=== PATIENT | female | born 1940 | race Caucasian/White ===

== ENCOUNTER 2017-09-13 06:07 | Day surgery (SDC) | payer MEDICARE ==
[2017-09-12 13:36] VITALS: BMI 36.6
[2017-09-13] MEDS ORDERED: CEFAZOLIN/Water 2 GM/20 ML SYRINGE ONE (06:46)
[2017-09-13] MEDS ORDERED: Diprivan 20 ML ONE (06:57)
[2017-09-13 06:58] LABS: #Basophils 0.1 thou/uL (0.0-0.2); #Eosinphils 0.1 thou/uL (0.0-0.7); #Lymphocytes 2.3 thou/uL (1.20-3.40); #Monocytes 0.5 thou/uL (0.11-0.59); #Neutrophils 4.8 thou/uL (1.40-6.50); %Basophils 0.7 % (0.0-1.0); %Eosinophils 0.6 % (0.0-10.0); %Lymphocytes 29.8 % (21.0-51.0); %Monocytes 6.9 % (0.0-10.0); Hematocrit 45.6 % (36.0-47.0); Mean Platelet Volume 7.5 fL (7.4-10.4); Red Blood Cell (RBC) Count 4.61 mill/uL (4.20-5.40); White Blood Cell (WBC) Count 7.7 thou/uL (4.8-10.8)
[2017-09-13 07:19] LABS: Anion Gap 12 mmol/L (10-20); BUN (Urea Nitrogen) 16 mg/dL (9.8-20.1); Calc. Creatinine Clearance 85 mL/min (70-130); Calcium 9.4 mg/dL (7.8-10.44); Carbon Dioxide 26 mmol/L (23-31); Chloride 108 mmol/L (98-107); Estimated GFR-MDRD 68
[2017-09-13] MEDS ORDERED: Fentanyl 100 MCG/2 ML VIAL ONE (07:23)
--- NOTE | 2017-09-13 08:49 | OP ---
DATE OF PROCEDURE: 09/13/2017 PREOPERATIVE DIAGNOSIS: Left knee posterior horn medial meniscus tear. POSTOPERATIVE DIAGNOSES: 1. Left knee posterior horn medial meniscus tear. 2. 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 PROCEDURE PERFORMED: Left knee arthroscopy, partial medial meniscectomy. SURGEON: Josse Al M.D. PASSENGER COACH DRIVER: None. BLOOD LOSS: Minimal. COMPLICATIONS: None. DISPOSITION: She did have a general as well as a local knee block. DISPOSITION: She went to the recovery room in stable condition. INDICATIONS: A 77-year-old female who has been having problems with pain, catching, and swelling in the knee. At this time, she opted to have an arthroscopy. DESCRIPTION OF PROCEDURE: After all appropriate consent forms were explained and signed, she was dominique en to the operating room and at this time was given general anesthetic. Once anesthesia was appropri ate, the tourniquet was placed on the left thigh and the leg was prepped and draped in standard surgi srinivasan fashion. Limb was then exsanguinated and tourniquet taken up to 300 mmHg. An inferolateral port al was established and the scope was placed into the knee joint. Needle localization technique was t hen used to make a medial working portal. Diagnostic arthroscopy commenced in the notch. ACL and PC L probed and found to be intact. Medial compartment showed some grade II chondromalacia on the media l femoral condyle and was also on some small areas of medial tibial plateau as well. Posterior horn medial meniscus tear was noted and a partial meniscectomy was performed using meniscal biter and shav er. This meniscus was also noted to be fairly hard and calcified. The lateral compartment was enter ed and overall was in excellent condition. The gutters were swept through and no loose bodies were n oted. Patellofemoral joint was also evaluated and found to be in good condition. At this time, the scope was removed, the knee was drained. Portals were closed with simple nylon stitch. Bulky steril e dressing was applied and the tourniquet was let down. Toes pinked up nicely. The patient was awak ened, she was taken to recovery in stable condition. All counts were correct at the end of the case. She received preoperative IV antibiotics.
[2017-09-13] MEDS ORDERED: Lidocaine 2% w/Epinephrine 1:200K 20 ML VIAL ONE (15:02)
[2017-09-13] MEDS ORDERED: Bupivacaine PF 0.5% 30 ML VIAL ONE (15:02)
[2017-09-13] MEDS ORDERED: Bupivacaine HCl 0.5%/Epinephrine 1:200,000/PF 30 ml Vial ONE (15:02)
[2017-09-13] MEDS ORDERED: Propofol 200 MG/20 ML VIAL ONE (15:22)
[2017-09-13] MEDS ORDERED: Ondansetron HCl/PF 4 MG/2 ML Vial ONE (15:22)
[2017-09-13] MEDS ORDERED: Lidocaine 1% PF 5 ML VIAL ONE (15:22)
== END 2017-09-13 10:20 | disposition home or self-care (01) ==
LOC: SDC 06:07
PROVIDERS: ATTEND Orthopaedic Surgery
PROC: 0SBD4ZZ Excision of Left Knee Joint, Percutaneous Endoscopic Approach (ICD-10-PCS; principal; 2017-09-13)
DX: S83.242A Other tear of medial meniscus, current injury, left knee, initial encounter (principal); M94.262 Chondromalacia, left knee; I10 Essential (primary) hypertension; Z79.82 Long term (current) use of aspirin; Z79.899 Other long term (current) drug therapy; Z91.040 Latex allergy status; Z98.42 Cataract extraction status, left eye; Z98.41 Cataract extraction status, right eye; Z96.1 Presence of intraocular lens; Z98.890 Other specified postprocedural states
CPT/HCPCS: 29881; 80048; 85025; 93005; 97116; 97139; G8978; G8979; G8980; 93010; J0670; J2001; J2405; J2704; J3010; S0020

== ENCOUNTER 2022-03-24 14:47 | Observation (INO) | payer MEDICARE ==
[2022-03-24 20:36] LABS: #Basophils 0.1 thou/uL (0.0-0.2); #Eosinphils 0.1 thou/uL (0.0-0.7); #Lymphocytes 2.4 thou/uL (1.20-3.40); #Monocytes 0.6 thou/uL (0.11-0.59); #Neutrophils 6.6 thou/uL (1.40-6.50); %Basophils 0.8 % (0.0-1.0); %Eosinophils 0.9 % (0.0-10.0); %Lymphocytes 24.9 % (21.0-51.0); %Monocytes 6.3 % (0.0-10.0); %Neutrophils 67.2 % (42.0-75.0); Hemoglobin 15.1 g/dL (12.0-16.0); Mean Corpuscular HGB CONC 32.4 g/dL (32.0-36.0); Mean Corpuscular Hemoglobin 32.2 pg (27.0-31.0); Mean Corpuscular Volume 99.5 fL (78.0-98.0); Mean Platelet Volume 7.6 fL (7.4-10.4); Platelet Count 277 thou/uL (130-400); RBC Distribution Width 11.5 % (11.5-14.5); Red Blood Cell (RBC) Count 4.69 mill/uL (4.20-5.40); White Blood Cell (WBC) Count 9.8 thou/uL (4.8-10.8)
[2022-03-24 20:57] LABS: ALT (SGPT) 40 U/L (8-55); AST (SGOT) 21 U/L (5-34); Albumin 3.6 g/dL (3.4-4.8); Alkaline Phosphatase 87 U/L (40-110); Anion Gap 12 mmol/L (10-20); BUN (Urea Nitrogen) 19 mg/dL (9.8-20.1); Bilirubin, Total 0.5 mg/dL (0.2-1.2); Calc. Creatinine Clearance 0 mL/min (70-130); Carbon Dioxide 29 mmol/L (23-31); Chloride 104 mmol/L (98-107); Globulin 2.9 g/dL (2.4-3.5); Glucose 97 mg/dL (83-110); Potassium 4.8 mmol/L (3.5-5.1); Protein, Total 6.5 g/dL (5.8-8.1); Sodium 140 mmol/L (136-145)
[2022-03-24] MEDS: Gabapentin 300 MG CAP PO SCH (21:25)
[2022-03-24] MEDS: Losartan 25 MG TAB PO SCH (21:32)
[2022-03-24] MEDS: methylPREDNISolone Sod Succ 40 MG VIAL IVP SCH (21:32)
[2022-03-25 00:26] VITALS: BMI 29.4
[2022-03-25 02:01] LABS: SARS-CoV-2 NAA Rapid Test Not Detected (NotDetected)
[2022-03-25] MEDS: Morphine 2 MG/ML VIAL SLOW IVP PRN ×3 (06:37→21:16)
[2022-03-25] MEDS: Gabapentin 300 MG CAP PO SCH ×3 (09:16→20:01)
[2022-03-25] MEDS: methylPREDNISolone Sod Succ 40 MG VIAL IVP SCH (10:00)
[2022-03-25] MEDS ORDERED: Dexamethasone 4 MG TAB PO SCH (10:15)
[2022-03-25] MEDS ORDERED: Acetaminophen 325 MG TAB PO PRN (16:11)
[2022-03-25] MEDS: Ibuprofen 600 MG TAB PO PRN (16:27)
[2022-03-25] MEDS: Acetaminophen 325 MG TAB PO SCH ×2 (18:30→23:55)
[2022-03-25] MEDS: Losartan 25 MG TAB PO SCH (20:02)
[2022-03-26] MEDS: Ibuprofen 600 MG TAB PO PRN (05:11)
[2022-03-26] MEDS: Acetaminophen 325 MG TAB PO SCH ×2 (05:12→12:13)
[2022-03-26] MEDS: Morphine 2 MG/ML VIAL SLOW IVP PRN (06:43)
[2022-03-26] MEDS ORDERED: Dexamethasone 4 MG TAB PO SCH (08:00)
[2022-03-26] MEDS: Gabapentin 300 MG CAP PO SCH ×2 (08:54→15:48)
[2022-03-26] MEDS ORDERED: HYDROcodone/Acetaminophen 5/325 mg Tablet PO PRN (08:55)
[2022-03-26] MEDS: HYDROcodone/Acetaminophen 5/325 mg Tablet PO PRN ×2 (10:17→15:48)
[2022-03-26 12:17] VITALS: BP 110/73; TEMP 97.4
== END 2022-03-26 16:30 ==
LOC: INTOOBSV 14:47 → SURG B 14:47
PROVIDERS: ADMIT Student in an Organized Health Care Education/Training Program; ATTEND Student in an Organized Health Care Education/Training Program
DX: S32.040A Wedge compression fracture of fourth lumbar vertebra, initial encounter for closed fracture (principal); I10 Essential (primary) hypertension; M48.061 Spinal stenosis, lumbar region without neurogenic claudication; M51.36 Other intervertebral disc degeneration, lumbar region; M47.816 Spondylosis without myelopathy or radiculopathy, lumbar region; M47.817 Spondylosis without myelopathy or radiculopathy, lumbosacral region; M25.561 Pain in right knee; Z79.82 Long term (current) use of aspirin; Z79.899 Other long term (current) drug therapy; Z91.040 Latex allergy status; Z20.822 Contact with and (suspected) exposure to COVID-19; W19.XXXA Unspecified fall, initial encounter; Y93.01 Activity, walking, marching and hiking; Y92.009 Unspecified place in unspecified non-institutional (private) residence as the place of occurrence of the external cause
CPT/HCPCS: 72131; 72192; 73562; 80053; 85025; 96374; 96375; 96376 ×2; 97116; 97139 ×3; 97535; G0378 ×3; J2270 ×2; U0002; 36415; J2920; J8540